=== PATIENT | male | born 1990 | race Asian ===

== ENCOUNTER 2019-10-14 11:30 | Emergency (ER) | payer MEDICAID ==
[~2019-10-14] VITALS: Ht 175.3 cm; Wt 69.9 kg
[2019-10-14 12:41] VITALS: BP_SYST 117
--- NOTE | 2019-10-14 12:45 | NUR ---
placed in wr
--- NOTE | 2019-10-14 15:45 | NUR ---
placed in hallway
--- NOTE | 2019-10-14 15:55 | NUR ---
Dr. Young examining pt
--- NOTE | 2019-10-14 16:31 | NUR ---
Patient given written and verbal discharge instructions and verbalizes understanding. ER MD discussed with patient the results and treatment provided. Patient in stable condition. ID arm band removed. Rx of artificial tear given. Patient educated on pain management and to follow up with PMD. Pain Scale 0/10. Opportunity for questions provided and answered. Medication side effect fact sheet provided.
[2019-10-14 16:36] VITALS: BP_SYST 121
== END 2019-10-14 16:31 | disposition home or self-care (01) ==
LOC: SED 11:30
DX: H04.123 Dry eye syndrome of bilateral lacrimal glands (principal)
CPT/HCPCS: 99282